=== PATIENT | female | born 1980 | race Caucasian/White ===

== ENCOUNTER → 2020-05-18 | Outpatient (CLI) | payer BC ==
[~2020-05-18] MED LIST: PANT40TA5 PO
== END | disposition home or self-care (01) ==
LOC: LAB 15:10
PROVIDERS: ATTEND Nurse Anesthetist, Certified Registered
DX: Z11.59 Encounter for screening for other viral diseases (principal)
CPT/HCPCS: C9803; U0003

== ENCOUNTER → 2020-05-23 | Day surgery (SDC) | payer BC ==
[~2020-05-23] MED LIST changes: +IPRATRPIUM/ALBUTEROL 0.5/2.5MG 3 ML NEBU. NEB PRN; +IV RINGERS SOLUTION,LACTATED 1,000 ML IV SCH; +ONDANSETRON PF 4 MG/2 ML VIAL. IV PRN; -PANT40TA5 PO; +PANT40TA6 PO; +PROPOFOL 10,000 MCG/ML (20ML) VIAL IV ONE
[2020-05-23 11:08] LABS: U PREG PATIENT NEGATIVE (NEG)
[2020-05-23 13:33] VITALS: BP 121/83
--- NOTE | 2020-05-25 15:08 | PATHOLOGY ---
[facility] Accession Number: [id number] . 01 Material submitted: . small bowel - SMALL BOWEL BX . 01 Clinical history: . Rule out celiac/anemia . 01 Frozen section diagnosis: . . /QMS . 02 Diagnosis: Small bowel biopsies: - No significant pathologic abnormalities. (JPM:omari; 05/25/2020) QMS 05/25/2020 1321 Local . 02 Comment: Sections of the small bowel biopsy reveal segments of duodenal mucosa. Where best oriented, the mucosal villi show no sprue-like changes or significant inflammatory changes. (JPM:omari; 05/25/2020) . 02 Electronically signed: . Siddharth Bolivar MD, Pathologist NPI- [id number] . 01 Gross description: . The specimen is received in formalin, labeled "Oscar, Suzy, small bowel biopsy" and consists of multiple fragments of wilson tissue measuring 0.9 x 0.3 x 0.3 cm in aggregate which are entirely submitted in A1. ([facility]; 05/24/2020) JFQ/JFQ 05/24/2020 1700 Local . 02 Microscopic: . . . . 02 Pathologist provided ICD-10: Z12.11 . 02 CPT . 719164 Specimen Comment: A courtesy copy of this report has been sent to [phone] Specimen Comment: [phone] Specimen Comment: Report sent to / DR MATHEW Performed at: 01 [facility] [address] [facility] [address], [place] [id number] MD Rashad George MD Phone: [phone] Performed at: 02 [facility] [address] [place], [place] [id number] MD Siddharth Bolivar MD Phone: [phone]
== END ==
LOC: SURG 10:18
PROVIDERS: ATTEND Internal Medicine Gastroenterology
DX: D50.9 Iron deficiency anemia, unspecified (principal); K57.30 Diverticulosis of large intestine without perforation or abscess without bleeding; K31.89 Other diseases of stomach and duodenum; Z72.89 Other problems related to lifestyle
CPT/HCPCS: 43239; 45378; 81025; 88305; J2704; J7120